=== PATIENT | female | born 1950 | race Caucasian/White ===

== ENCOUNTER 2025-03-11 09:42 | Emergency (ER) | payer MEDICARE, SELFPAY ==
[2025-03-11 09:43] VITALS: BP 142/84; PULSE 97; RESP 16; TEMP 36.5; O2SAT 98; BMI 23.8
--- NOTE | 2025-03-11 09:57 | EX.ED.DYSGE1 ---
HPI History of Present Illness Chief Complaint: Abd Pain Detail of Chief Complaint: Initially patient thought she had the flu now colicky waxing and waning u Informant: patient Onset/Context/Timing Onset: Days (March 06) Context: Sudden Onset Timing: Continuous and Waxes and wanes Quality: Colicky Location: Bilateral upper quadrant without radiation Current Severity: Mild Maximum Severity: Moderate Worsened by: Nothing Relieved by: Nothing Associated Symptoms Associated Symptoms: no bowel movement since March 05 Narrative Narrative: Patient is a 74-year-old woman. She was a multiple trauma August of this year. She was thrown from her horse. She had a brain bleed, fractured ribs and reported liver injury. She states at the time her stool was white. She presents now because of colicky waxing and waning bilateral upper quadrant abdominal pain with nausea. She has had no vomiting. She states she has not had a bowel movement since March 05. She has history of diverticulosis and diverticulitis. She had part of her bowel resected. She also had abdominal surgery for abdominal hernia. Patient denies respiratory or cardiac symptoms. Patient denies urologic symptoms. Patient denies gynecologic symptoms. She has no pain in her back. There is no radiation of the abdominal pain to her back either. Prior similar symptoms: No Recent Illness/Hospitalization: No PFSH PFSH Medical History Anxiety Diabetes Injury of gallbladder Non-smoker Home Medications ?Medication ?Instructions ?Recorded ?Last Taken ?Type glipizide 2.5 mg tablet 2.5 mg PO DAILY #30 tabs 03/11/25 Unknown Rx glipizide 5 mg tablet 5 mg PO BID 03/11/25 Unknown History Allergy/AdvReac Type Severity Reaction Status Date / Time Penicillins Allergy Swelling Verified 03/11/25 09:45 Social History (Updated 03/11/25 @ 10:[address] Alejandro Yoder MD) Smoking Status: Never smoker alcohol intake: never substance use type: does not use ROS ROS ED Constitutional Constitutional ED: Reports weight loss and other Details: Patient states she has lost 10 pounds over the last week. She reports she has no appetite. ; Denies chills, fever(s), subjective or sweats Eyes Eyes: Denies blurry vision or change in vision ENT ENT ED: Denies ear pain or rhinorrhea Cardiovascular Cardiovascular: Denies chest pain, orthopnea, palpitations or paroxysmal nocturnal dyspnea Respiratory/Chest Respiratory/Chest: Denies cough, dyspnea, dyspnea on exertion, orthopnea or paroxysmal nocturnal dyspnea Gastrointestinal Gastrointestinal: Reports abdominal pain, nausea and other Details: No maroon-colored stool. No mucus in her stool. ; Denies constipation, diarrhea, melena or vomiting Genitourinary Genitourinary ED: Denies dysuria, hematuria or urinary frequency Musculoskeletal Musculoskeletal: Denies back pain or neck pain Integumentary Denies rash Endocrine Endocrinology: Denies cold intolerance or heat intolerance Hematologic/Lymphatic Hematologic/Lymphatic: Reports systems reviewed and no addt'l complaints, except as documented EXAM Physical Exam Const Vital Signs: 03/11/25 09:43 Temperature 97.7 F L Temperature Source Oral Pulse Rate 97 Respiratory Rate 16 Blood Pressure 142/84 H Blood Pressure Mean 103 Pulse Ox 98 Oxygen Delivery Method Room Air Positive well nourished and well developed General Appearance ED: well developed and NAD; Negative for pallor HEENT Reports moist mucous membranes HEENT Narrative: Head is atraumatic and normocephalic. Ears normal. Nares patent. Posterior pharynx is normal. Eyes PERRL and EOMs intact bilaterally General Eye ED: Negative for pale conjunctiva or scleral icterus Neck no lymphadenopathy and supple Chest Wall inspection of chest normal and palpation of chest normal Resp normal respiratory effort and clear to auscultation bilaterally Cardio regular rate, regular rhythm, S1 normal heart sound and S2 normal heart sound GI normal to inspection, nondistended, normoactive bowel sounds and no masses; Negative for non-tender or hepatosplenomegaly Palpation: soft and tender epigastric (Negative clinical Christiansen sign.); Negative for guarding Back/Spine no CVA tenderness Extremity normal to inspection Neuro oriented x3 and CN's II-XII intact bilaterally Sensorium / Orientation: alert Psych mental status grossly normal Skin no rashes or lesions noted, no wounds and skin turgor normal General Skin Exam: elasticity normal; Negative for jaundice or pallor MDM MDM MDM Narrative Medical decision making narrative: Differential diagnosis is abdominal pain of unknown etiology, esophagitis/gastritis versus peptic ulcer disease, biliary disease, pancreatitis, obstipation History & Record Review Additional record(s) reviewed:: No prior records Lab Data Attestation: I reviewed the patient's lab results. Lab results narrative: CBC reveals an elevated H&H of 16.0 and 48.3. Indices are normal. White count is upper end of normal. There is a slight shift with no bandemia. Comprehensive metabolic panel is remarked for sodium 132 and chloride 94. CO2 is slightly below normal at 20.9 with an anion gap of 17. Lipase was normal. Labs: Laboratory Results - last 24 hr 03/11/25 10:05 WBC 10.8 RBC 5.51 H Hgb 16.0 H Hct 48.3 H MCV 87.7 MCH 29.0 MCHC 33.1 RDW Std Deviation 44.4 H RDW Coeff of Kathleen 13.9 Plt Count 303 MPV 10.8 Immature Gran % (Auto) 0.600 Neut % (Auto) 73.4 H Lymph % (Auto) 17.7 L [place] % (Auto) 7.3 Eos % (Auto) 0.6 Baso % (Auto) 0.4 Absolute Neuts (auto) 7.9 H Absolute Lymphs (auto) 1.90 Nucleated RBC % 0 Sodium 132 L Potassium 4.2 Chloride 94 L Carbon Dioxide 20.9 L Anion Gap 17 H BUN 14 Creatinine 0.72 Estim Creat Clear Calc 65.45 Est GFR (MDRD) Non-Af 88 BUN/Creatinine Ratio 19.4 Glucose 156 H Calcium 9.8 Total Bilirubin 0.91 Direct Bilirubin 0.26 AST 14 ALT 13 Alkaline Phosphatase 97 Total Protein 7.1 Albumin 4.5 Globulin 2.5 Lipase 25 Radiography Chest X-Ray - ED: Read by ED Physician (3 view abdominal series was remarkable for increased fecal stasis. Chest portion reveals no infiltrate, effusion. Cardiac silhouette size normal. [place] is normal. Osseous trucks unremarkable. Abdominal portion reveals no evidence of pneumoperitoneum. There is increased fecal matter noted. [place]) Treatment and Re-Evaluation :: Patient were made aware of laboratory results and x-ray results. She has been instructed contact her doctor regarding her medication for diabetes. Recommended discontinuing the GPL 1. Discharge Plan Triage Chief Complaint: Abd Pain ED Provider: PareshAlejandro Dx/Rx/DC Orders Clinical Impression: Obstipation, Adverse drug effect, Gastroparesis, Hyponatremia, Type 2 diabetes mellitus Prescriptions: New glipizide 2.5 mg tablet 2.5 mg PO DAILY Qty: 30 0RF No Action glipizide 5 mg tablet 5 mg PO BID Primary Care Provider: Ruth Ashby Referrals: Ruth Ashby MD [Primary Care Provider, Family Practice] - 5-7 Days Activity Restrictions/Additional Instructions: 1. Drink 10 ounces of mag citrate. 2. 4 hours after you drink the mag citrate 1 cap of MiraLAX and a full glass of water or beverage of choice. 3. Repeat 1 cap of MiraLAX every 1-2 hours until you have results. 4. Discontinue your Mounjaro Print Language: [place]an Disposition Disposition: Home, Self Care
[2025-03-11 10:13] LABS: Hematocrit 48.3 % (37-47); Hemoglobin 16.0 g/dL (12.0-15.0); Immature Granulocytes Count 0.060 X10^3/uL (0.0-0.0); Mean Corp Hgb Conc 33.1 g/dL (32-36); Mean Corpuscular Volume 87.7 fL (81-99); Mean Platelet Vol. 10.8 fl (6.2-12.0); NRBC Flagged by Analyzer 0 % (0-5); Platelet Count 303 K/mm3 (150-450); RBC Distribution Width CV 13.9 % (11.6-14.6); RBC Distribution Width SD 44.4 fl (35.1-43.9); Red Blood Count 5.51 M/mm3 (4.2-5.4); White Blood Count 10.8 K/mm3 (4.4-11.0)
--- NOTE | 2025-03-11 10:35 | RAD_ITS ---
PROCEDURE: ACUTE ABDOMEN INC CHEST 03/11/2025 REASON FOR EXAM: PAIN TECHNIQUE: Procedure Code: RADABDCA Modality: DX Procedure: Four view ACUTE abdominal series including PA CHEST COMPARISON: None provided. RAD/Acute Abdomen Inc Chest IMPRESSION: No evidence of pneumoperitoneum. Chronic lung changes are seen, but no acute pneumonic process is identified. N o pleural effusion or pneumothorax is seen. The cardiomediastinal silhouette is within the normal range. Mild sacroiliac joint degenerative changes are seen. Note is also made of a partially sacralized left L5 transverse process, with ps eudoarticulation at the medial aspect of the left iliac crest; this may be a source of pain in some patients. Mild degenerative changes are seen throughout the visualized spine. The bowel-gas pattern is unremarkable. No mass or mass effect is seen. Reading Location: [place] [id number]
[2025-03-11 11:24] LABS: AST(SGOT) 14 U/L (<=31); Alanine Aminotransfer ALT/SGPT 13 U/L (<=34); Albumin, Serum 4.5 g/dL (3.4-4.8); Alkaline Phosphatase 97 U/L (35-104); Anion Gap 17 (5-15); BUN 14 mg/dL (4-19); BUN/Creat Ratio 19.4 RATIO (10-20); Bilirubin, Direct 0.26 mg/dL (0.00-0.30); Calcium,Total 9.8 mg/dL (7.6-11.0); Carbon Dioxide 20.9 mmol/L (21.0-32.0); Chloride 94 mmol/L (98-108); Estimated Creatinine Clearance 65.45 ml/min (50-250); Globulin 2.5 g/dL (2.2-4.2); Glucose 156 mg/dL (70-99); Lipase 25 U/L (13-75); Potassium 4.2 mmol/L (3.3-5.1)
[2025-03-11 11:38] VITALS: BP 139/69; PULSE 78; RESP 116; TEMP 36.8; O2SAT 95
== END 2025-03-11 11:45 | disposition home or self-care (01) ==
PROVIDERS: Emergency Provider Emergency Medicine; PCP Pediatrics; Visit Provider Emergency Medicine
DX: E11.43 Type 2 diabetes mellitus with diabetic autonomic (poly)neuropathy (principal); T38.3X5A Adverse effect of insulin and oral hypoglycemic [antidiabetic] drugs, initial encounter; K31.84 Gastroparesis; E87.1 Hypo-osmolality and hyponatremia; Z79.84 Long term (current) use of oral hypoglycemic drugs; Z87.19 Personal history of other diseases of the digestive system
CPT/HCPCS: 74022; 80048; 80076; 83690; 85025; 99283; A4216